=== PATIENT | male | born 1960 | race Hispanic/Latino ===

== ENCOUNTER 2016-12-24 10:10 | Emergency (ER) | payer MEDICAID ==
[2016-12-24 10:19] VITALS: BP 134/89; RESP 18; TEMP 98.3
--- NOTE | 2016-12-24 10:54 | C.PDOC ---
History Of Present Illness 56 y/o male presents to ED with complaints of decreased hearing in right ear for several days. Patient was seen by ENT doctor last week and given Flonase with no relief. Patient denies fever, runny nose, itchy eyes or cough. No other complaints at this time. Time Seen by Provider: 12/24/16 10:41 Chief Complaint (Nursing): ENT Problem History Per: Patient History/Exam Limitations: None Onset/Duration Of Symptoms: Days Past Medical History Reviewed: Historical Data, Nursing Documentation, Vital Signs Vital Signs: Last Vital Signs Temp 98.3 F 12/24/16 10:16 Pulse 88 12/24/16 11:22 Resp 18 12/24/16 11:22 BP 134/89 12/24/16 10:16 Pulse Ox 98 12/24/16 11:22 Family History: States: No Known Family Hx - Social History Hx Alcohol Use: No Hx Substance Use: No - Immunization History Hx Tetanus Toxoid Vaccination: No Hx Influenza Vaccination: Yes Hx Pneumococcal Vaccination: No Review Of Systems Except As Marked, All Systems Reviewed And Found Negative. Constitutional: Negative for: Fever, Chills ENT: Negative for: Nose Congestion Respiratory: Negative for: Cough Skin: Negative for: Rash Physical Exam - Physical Exam Appears: No Acute Distress Skin: Normal Color, Warm, No Dry Head: Atraumatic, Normacephalic Ear(s): Left: Normal, Right: Other (Clear fluid behind TM on right ear, no serumen, no swelling of canal or discharge) Nose: Normal Oral Mucosa: Moist Throat: Normal, No Erythema, No Exudate Cardiovascular: Rhythm Regular, No Murmur Respiratory: Normal Breath Sounds, No Rales, No Rhonchi, No Wheezing Neurological/Psych: Oriented x3 ED Course And Treatment O2 Sat by Pulse Oximetry: 99 (RA) Pulse Ox Interpretation: Normal Medical Decision Making Medical Decision Making: Patient was given Pseudoephed at ED and discharged home with medications and advised to follow up wit ENT doctor this week. Disposition Counseled Patient/Family Regarding: Studies Performed, Diagnosis, Need For Followup, Rx Given - Disposition Referrals: Tomasa Marcos MD [Non-Staff] - Disposition: HOME/ ROUTINE Disposition Time: 10:50 Condition: STABLE Additional Instructions: FOLLOW UP WITH ENT WITHIN 1 WEEK USE MEDICATION NEEDED RETURN TO ER IF SYMPTOMS WORSEN Prescriptions: Pseudoephedrine [Sudafed] 60 mg PO Q6 PRN #12 tab PRN Reason: Nasal Congestion Print Language: PUERTO RICAN - POA Present On Arrival: None - Clinical Impression Clinical Impression: Ear fullness - Scribe Statement The provider has reviewed the documentation as recorded by the Scribcandice Batista All medical record entries made by the Scribe were at my direction and personally dictated by me. I have reviewed the chart and agree that the record accurately reflects my personal performance of the history, physical exam, medical decision making, and the department course for this patient. I have also personally directed, reviewed, and agree with the discharge instructions and disposition.
[2016-12-24 11:23] VITALS: PULSE 88
[2016-12-24 11:49] VITALS: O2SAT 99
== END 2016-12-24 11:23 | disposition home or self-care (01) ==
LOC: C.ER 10:10
DX: H93.8X1 Other specified disorders of right ear (principal)

== ENCOUNTER 2018-07-25 11:06 | Outpatient (CLI) | payer MEDICAID | END 2018-07-25 11:07 | disposition home or self-care (01) | LOC: C.RADH 11:06 | DX: C09.9 Malignant neoplasm of tonsil, unspecified (principal); Z92.3 Personal history of irradiation ==

== ENCOUNTER 2018-10-03 08:11 | Emergency (ER) | payer MEDICAID ==
--- NOTE | 2018-10-03 10:45 | C.PDOC ---
History Of Present Illness 58 year old male presents to ED requesting to have his PEG tube changed. Patient states that the PEG tube broke. Patient states that he had the PEG tube placed several years ago at [facility]. Patient denies nausea, vomiting, chest pain, fever, and SOB. Time Seen by Provider: 10/03/18 08:19 Chief Complaint (Nursing): GI Problem History Per: Patient History/Exam Limitations: no limitations Current Symptoms Are (Timing): Still Present Radiation Of Pain To:: None Quality Of Discomfort: denies: "Pain" Exacerbating Factors: None Alleviating Factors: None Past Medical History Reviewed: Historical Data, Nursing Documentation, Vital Signs Vital Signs: Last Vital Signs Temp 98 F 10/03/18 08:18 Pulse 81 10/03/18 08:18 Resp 17 10/03/18 08:18 BP 164/80 H 10/03/18 08:18 Pulse Ox 97 10/03/18 08:18 - Medical History PMH: Hypothyroidism Surgical History: No Surg Hx Family History: States: Unknown Family Hx - Social History Hx Alcohol Use: No Hx Substance Use: No - Immunization History Hx Tetanus Toxoid Vaccination: Yes Hx Influenza Vaccination: Yes Hx Pneumococcal Vaccination: No Review Of Systems Constitutional: Negative for: Fever, Chills, Weakness Cardiovascular: Negative for: Chest Pain Respiratory: Negative for: Shortness of Breath Gastrointestinal: Negative for: Nausea, Vomiting Neurological: Negative for: Weakness, Numbness, Dizziness Physical Exam - Physical Exam Appears: Well, Non-toxic, No Acute Distress Skin: Normal Color, Warm, Dry Head: Atraumatic, Normacephalic Neck: Normal ROM, Supple Chest: Symmetrical, No Deformity Cardiovascular: Rhythm Regular, No Murmur Respiratory: No Accessory Muscle Use, No Rales, No Rhonchi, No Wheezing Gastrointestinal/Abdominal: Soft, No Tenderness, Other (PEG tube in place in the left periumbilical area, no erythema, clean appearing) Extremity: Capillary Refill (<2 seconds) Neurological/Psych: Oriented x3, Normal Speech, Normal Cognition ED Course And Treatment O2 Sat by Pulse Oximetry: 97 (in RA) Progress Note: New PEG tube placed for patient. Patient was discharged. Disposition - Disposition Referrals: Shaik Ocampo MD [Staff Provider] - Disposition: HOME/ ROUTINE Disposition Time: 10:30 Condition: STABLE Instructions: Enterostomy (DC) Forms: [employer] (Portuguese) Print Language: TRINIDADIAN - Clinical Impression Clinical Impression: PEG tube malfunction - Scribe Statement The provider has reviewed the documentation as recorded by the Scribe (Ally Hernandez) All medical record entries made by the Scribe were at my direction and personally dictated by me. I have reviewed the chart and agree that the record accurately reflects my personal performance of the history, physical exam, medical decision making, and the department course for this patient. I have also personally directed, reviewed, and agree with the discharge instructions and disposition.
[2018-10-03 11:18] VITALS: BP 148/78; PULSE 78; RESP 18; TEMP 98.2
[2018-10-03 13:32] VITALS: O2SAT 97
== END 2018-10-03 11:19 | disposition home or self-care (01) ==
LOC: C.ER 08:11
DX: K94.23 Gastrostomy malfunction (principal); Y84.8 Other medical procedures as the cause of abnormal reaction of the patient, or of later complication, without mention of misadventure at the time of the procedure; Y92.89 Other specified places as the place of occurrence of the external cause